=== PATIENT | female | born 1980 | race Caucasian/White ===

== ENCOUNTER 2024-05-30 09:57 | Day surgery (SDC) | payer OTHER ==
[~2024-05-30] VITALS: Ht 165.1 cm; Wt 96.6 kg
[2024-05-30] MEDS ORDERED: fentaNYL citrate 0.05 MG/ML VIAL ONE (13:26)
[2024-05-30] MEDS ORDERED: MIDAZOLAM 2 MG/2 ML VIAL ONE (13:26)
[2024-05-30] MEDS: fentaNYL citrate 0.05 MG/ML VIAL IVP ONE (13:46)
[2024-05-30] MEDS: LIDOCAINE 2% 100 MG/5 ML UJET TP ONE (13:54)
== END 2024-05-30 15:14 | disposition home or self-care (01) ==
LOC: MOR 09:57 → MMU 10:34 → MOR 15:14
PROVIDERS: ATTEND Internal Medicine Gastroenterology
DX: Z12.11 Encounter for screening for malignant neoplasm of colon (principal); K57.30 Diverticulosis of large intestine without perforation or abscess without bleeding; E78.00 Pure hypercholesterolemia, unspecified; Z88.8 Allergy status to other drugs, medicaments and biological substances
CPT/HCPCS: 45378; J3010; J2250